=== PATIENT | female | born 1960 | race American Indian/Alaskan Native ===

== ENCOUNTER 2018-06-06 08:50 | Emergency (ER) | payer SELFPAY ==
[2018-06-06] MEDS ORDERED: ASPIRIN PO ONE (09:05)
[2018-06-06] MEDS ORDERED: NITRO-BID 2% TP ONE (10:34)
--- NOTE | 2018-06-06 10:39 | Emergency Department Report ---
HPI - General Chief Complaint: Chest Pain Time Seen by Provider: 06/06/18 10:29 - HPI HPI: Room 23 The patient is a 57-year-old female presenting with chief complaint of chest pain. The patient states for the past 2 weeks she's had intermittent substernal chest pain associated with nausea and vomiting. Patient denies shortness of breath or diaphoresis. Patient describes her pain as sharp and intermittent in nature. The patient currently gives her pain a score of 7/10. The patient states her last stress test occurred several years ago and she has never had a cardiac catheterization Location: Substernal chest Duration: Intermittent 2 weeks Quality: Sharp Severity: 7/10 Modifying factors: [see above] Context: [see above] Mode of transportation: [not driving] ED Past Medical Hx - Past Medical History Previous Medical History?: Yes Hx Hypertension: Yes - Surgical History Past Surgical History?: Yes Additional Surgical History: , Cyst removed from ovary - Family History Family history: no significant - Social History Smoking Status: Former Smoker (none times years) Substance Use Type: None (denies illicit drug use), Alcohol (occasional) ED Review of Systems ROS: Stated complaint: CHEST PAIN Other details as noted in HPI Constitutional: denies: diaphoresis Eyes: denies: eye pain ENT: denies: throat pain Respiratory: denies: shortness of breath Cardiovascular: chest pain Endocrine: no symptoms reported Gastrointestinal: nausea, vomiting Genitourinary: denies: dysuria Musculoskeletal: denies: back pain Neurological: headache Physical Exam - Physical Exam Vital Signs: Vital Signs 06/06/18 09:01 Temperature 98.9 F Pulse Rate 121 H Respiratory 20 Rate Blood Pressure 177/117 O2 Sat by Pulse 99 Oximetry Physical Exam: GENERAL: The patient is well-developed well-nourished female lying on stretcher not appearing to be in acute distress. [] HEENT: Normocephalic. Atraumatic. Extraocular motions are intact. Patient has moist mucous membranes. NECK: Supple. Trachea midline CHEST/LUNGS: Clear to auscultation. There is no respiratory distress noted. HEART/CARDIOVASCULAR: Regular. There is no tachycardia. There is no gallop rub or murmur. ABDOMEN: Abdomen is soft, nontender. Patient has normal bowel sounds. There is no abdominal distention. SKIN: There is no rash. There is no edema. There is no diaphoresis. NEURO: The patient is awake, alert, and oriented. The patient is cooperative. The patient has normal speech MUSCULOSKELETAL: There is no evidence of acute injury. ED Course Vital Signs 06/06/18 09:01 Temperature 98.9 F Pulse Rate 121 H Respiratory 20 Rate Blood Pressure 177/117 O2 Sat by Pulse 99 Oximetry ED Medical Decision Making - Lab Data Result diagrams: 06/06/18 09:10 06/06/18 09:10 Laboratory Tests 06/06/18 06/06/18 09:10 09:10 WBC 4.8 RBC 4.57 Hgb 13.9 Hct 42.1 MCV 92 MCH 31 MCHC 33 RDW 14.8 Plt Count 281 Lymph % (Auto) 46.8 H [place] % (Auto) 6.3 Eos % (Auto) 1.4 Baso % (Auto) 2.1 H Lymph # 2.3 [place] # 0.3 Eos # 0.1 Baso # 0.1 Seg Neutrophils % 43.4 Seg Neutrophils # 2.1 Sodium 138 Potassium 4.0 Chloride 100.6 Carbon Dioxide 25 Anion Gap 16 BUN 14 Creatinine 0.9 Estimated GFR > 60 BUN/Creatinine Ratio 16 Glucose 95 Calcium 10.5 H Troponin T < 0.010 - EKG Data -: EKG Interpreted by Me EKG shows normal: sinus rhythm Rate: tachycardia (106 bpm) - EKG Data When compared to previous EKG there are: previous EKG unavailable Interpretation: nonspecific ST-T wave dilip (T-wave inversion in lead 3, V3) - Radiology Data Radiology results: image reviewed (chest x-ray) interpreted by me: Chest x-ray-no focal infiltrates, no pneumothorax - Medical Decision Making I discussed with the patient at length my concern for her chest pain and my recommendation she be admitted to the hospital for further observation. I explained that it negative cardiac enzymes does not rule out myocardial infarction. I explained that she should leave the hospital against medical advise she runs a risk of increased morbidity and/or mortality. Patient verbalized understanding of increased morbidity and/or mortality should she leave the hospital AGAINST MEDICAL ADVICE. - Differential Diagnosis ACS, pericarditis, GERD Critical care attestation.: If time is entered above; I have spent that time in minutes in the direct care of this critically ill patient, excluding procedure time. ED Disposition Clinical Impression: Chest pain, T wave inversion in EKG, Hypercalcemia Disposition: DC-07 LEFT AGAINST MED ADVICE Is pt being admited?: No Does the pt Need Aspirin: No Condition: Undetermined Instructions: Chest Pain (ED) Referrals: PRIMARY CARE, [Primary Care Provider] - 3-5 Days Time of Disposition: 11:13 (patient leaving AMA)
[2018-06-06 10:47] VITALS: BP 140/95
[2018-06-06 10:51] LABS: Basophils # (Auto) 0.1 K/mm3 (0.0-0.1); Basophils % (Auto) 2.1 % (0.0-1.8); Eosinophils # (Auto) 0.1 K/mm3 (0.0-0.4); Eosinophils % (Auto) 1.4 % (0.0-4.3); Hematocrit 42.1 % (30.3-42.9); Hemoglobin 13.9 gm/dl (10.1-14.3); Lymphocytes # (Auto) 2.3 K/mm3 (1.2-5.4); Lymphocytes % (Auto) 46.8 % (13.4-35.0); Mean Corpuscular HGB Conc 33 % (30-34); Mean Corpuscular Hemoglobin 31 pg (28-32); Mean Corpuscular Volume 92 fl (79-97); Monocytes # (Auto) 0.3 K/mm3 (0.0-0.8); Monocytes % (Auto) 6.3 % (0.0-7.3); Platelet Count 281 K/mm3 (140-440); Red Blood Count 4.57 M/mm3 (3.65-5.03); Red Cell Distribution Width 14.8 % (13.2-15.2)
[2018-06-06 11:01] LABS: BUN/Creatinine Ratio 16; Blood Urea Nitrogen 14 mg/dL (7-17); Calcium 10.5 mg/dL (8.4-10.2); Hemolysis Index 22
--- NOTE | 2018-06-06 11:28 | XRay Report ---
FINAL REPORT EXAM: XR CHEST 1V AP HISTORY: chest pain TECHNIQUE: Chest, portable semi upright PRIORS: None. FINDINGS: The heart size is normal. Mediastinal contours are normal. Pulmonary vasculature is not congested. The lungs are clear. There are no pleural effusion seen. There is no evidence of pneumothorax. IMPRESSION: There is no acute abnormality identified.
== END 2018-06-06 11:22 | disposition left against medical advice (07) ==
LOC: ED 08:50
DX: R07.89 Other chest pain (principal); E83.52 Hypercalcemia; I10 Essential (primary) hypertension; Z87.891 Personal history of nicotine dependence
CPT/HCPCS: 36415; 71045; 80048; 84484; 85025; 93005; 93010

== ENCOUNTER 2018-06-10 16:20 | Inpatient (IN) | payer OTHER ==
[2018-06-10] MEDS ORDERED: ASPIRIN PO ONE (16:25)
[2018-06-10 16:52] LABS: Basophils # (Auto) 0.1 K/mm3 (0.0-0.1); Basophils % (Auto) 1.1 % (0.0-1.8); Eosinophils # (Auto) 0.1 K/mm3 (0.0-0.4); Eosinophils % (Auto) 2.6 % (0.0-4.3); Hematocrit 39.9 % (30.3-42.9); Hemoglobin 13.2 gm/dl (10.1-14.3); Lymphocytes # (Auto) 2.8 K/mm3 (1.2-5.4); Lymphocytes % (Auto) 48.4 % (13.4-35.0); Mean Corpuscular HGB Conc 33 % (30-34); Mean Corpuscular Hemoglobin 30 pg (28-32); Mean Corpuscular Volume 91 fl (79-97); Monocytes # (Auto) 0.6 K/mm3 (0.0-0.8); Monocytes % (Auto) 10.5 % (0.0-7.3); Platelet Count 264 K/mm3 (140-440); Red Blood Count 4.37 M/mm3 (3.65-5.03); Red Cell Distribution Width 14.3 % (13.2-15.2)
[2018-06-10 17:08] LABS: BUN/Creatinine Ratio 15; Blood Urea Nitrogen 17 mg/dL (7-17); Calcium 10.2 mg/dL (8.4-10.2); Hemolysis Index 5
[2018-06-10] MEDS ORDERED: NITRO-BID 2% TP ONE (21:17)
[2018-06-10] MEDS ORDERED: ZOFRAN IV ONE (21:17)
[2018-06-10] MEDS ORDERED: MORPHINE IV ONE (21:18)
--- NOTE | 2018-06-10 21:18 | Emergency Department Report ---
HPI - General Chief Complaint: Chest Pain Time Seen by Provider: 06/10/18 20:55 - HPI HPI: Room 2 The patient is a 57-year-old female presenting with a chief complaint of chest pain. The patient was seen by myself 06/06/2018 for chest pain. I had attempted to admit the patient to the hospital but she left AGAINST MEDICAL ADVICE. The patient states after leaving she continued to have intermittent substernal chest pain this time described as squeezing in nature. Patient states she felt short of breath, diaphoretic and nausea without vomiting with her chest pain. The patient states she also has dizziness with her symptoms. The patient currently gives her pain score of 7/10. Patient states her last stress test occurred several years ago but she has never had a cardiac catheterization Location: Substernal chest Duration: [See above] Quality: Squeezing Severity: 7/10 Modifying factors: [see above] Context: [see above] Mode of transportation: [not driving] ED Past Medical Hx - Past Medical History Hx Hypertension: Yes - Surgical History Additional Surgical History: , Cyst removed from ovary - Family History Family history: no significant - Social History Smoking Status: Never Smoker Substance Use Type: None ED Review of Systems ROS: Stated complaint: CHEST PAIN Other details as noted in HPI Constitutional: diaphoresis Eyes: denies: eye pain ENT: denies: throat pain Respiratory: shortness of breath Cardiovascular: chest pain Endocrine: no symptoms reported Gastrointestinal: nausea. denies: vomiting Genitourinary: denies: dysuria Musculoskeletal: denies: back pain Neurological: other (dizziness) Physical Exam - Physical Exam Vital Signs: Vital Signs 06/10/18 16:23 Temperature 99.3 F Pulse Rate 101 H Respiratory 18 Rate Blood Pressure 118/65 O2 Sat by Pulse 97 Oximetry Physical Exam: GENERAL: The patient is well-developed well-nourished female lying on stretcher not appearing to be in acute distress. [] HEENT: Normocephalic. Atraumatic. Extraocular motions are intact. Patient has moist mucous membranes. NECK: Supple. Trachea midline CHEST/LUNGS: Clear to auscultation. There is no respiratory distress noted. HEART/CARDIOVASCULAR: Regular. There is no tachycardia. There is no gallop rub or murmur. ABDOMEN: Abdomen is soft, nontender. Patient has normal bowel sounds. There is no abdominal distention. SKIN: There is no rash. There is no edema. There is no diaphoresis. NEURO: The patient is awake, alert, and oriented. The patient is cooperative. The patient has no focal neurologic deficits. The patient has normal speech and gait. MUSCULOSKELETAL: There is no evidence of acute injury. ED Course Vital Signs 06/10/18 16:23 Temperature 99.3 F Pulse Rate 101 H Respiratory 18 Rate Blood Pressure 118/65 O2 Sat by Pulse 97 Oximetry ED Medical Decision Making - Lab Data Result diagrams: 06/10/18 16:30 06/10/18 16:30 Laboratory Tests 06/10/18 06/10/18 06/10/18 16:30 16:30 18:50 WBC 5.8 RBC 4.37 Hgb 13.2 Hct 39.9 MCV 91 MCH 30 MCHC 33 RDW 14.3 Plt Count 264 Lymph % (Auto) 48.4 H [place] % (Auto) 10.5 H Eos % (Auto) 2.6 Baso % (Auto) 1.1 Lymph # 2.8 [place] # 0.6 Eos # 0.1 Baso # 0.1 Seg Neutrophils % 37.4 L Seg Neutrophils # 2.2 Sodium 141 Potassium 3.7 Chloride 102.6 Carbon Dioxide 26 Anion Gap 16 BUN 17 Creatinine 1.1 Estimated GFR > 60 BUN/Creatinine Ratio 15 Glucose 88 Calcium 10.2 Troponin T < 0.010 < 0.010 - EKG Data -: EKG Interpreted by Me EKG shows normal: sinus rhythm Rate: normal - EKG Data When compared to previous EKG there are: changes noted Interpretation: nonspecific ST-T wave dilip (T-wave inversion in lead 3. Flattened T-wave in lead V3) - Radiology Data Radiology results: image reviewed (chest x-ray) interpreted by me: Chest x-ray-no focal infiltrates, no pneumothorax - Differential Diagnosis ACS, pericarditis, GERD Critical care attestation.: If time is entered above; I have spent that time in minutes in the direct care of this critically ill patient, excluding procedure time. ED Disposition Clinical Impression: Chest pain, T wave inversion in EKG Disposition: OP ADMIT IP TO THIS HOSP Is pt being admited?: Yes Does the pt Need Aspirin: Yes Condition: Fair Instructions: Chest Pain (ED) Referrals: PRIMARY CARE, [Primary Care Provider] - 3-5 Days Time of Disposition: 22:28 (hospitalist paged (Dr. Sydnee Pak))
--- NOTE | 2018-06-10 23:04 | XRay Report ---
FINAL REPORT EXAM: XR CHEST 1V AP HISTORY: chest pain TECHNIQUE: Frontal portable view of the chest Comparison: Chest x-ray dated June 06, 2018 FINDINGS: There is no evidence of infiltrate, pneumothorax or pleural fluid collection. The cardiac silhouette appears to be enlarged. This may be exaggerated by portable technique The thoracic aorta and bony structures are unremarkable. IMPRESSION: 1. No evidence of an acute pulmonary process. 2. The cardiac silhouette appears to be enlarged. This may be exaggerated by portable technique.
[2018-06-10] MEDS ORDERED: TYLENOL PO PRN (23:16)
[2018-06-10] MEDS ORDERED: MORPHINE IV PRN (23:16)
[2018-06-10] MEDS ORDERED: ZOFRAN IV PRN (23:16)
[2018-06-10] MEDS ORDERED: SODIUM CHLORIDE FLUSH SYRINGE 10 ML IV PRN (23:16)
--- NOTE | 2018-06-10 23:22 | History and Physical Report ---
History of Present Illness Date of examination: 06/10/18 History of present illness: 57-year-old woman comes emergency room with complaints of chest pain. Pain is a cross the chest which she describes as squeezing pain, intermittent in nature lasting for a few seconds, intensity 5 or 10, no radiation, ongoing over the last 2 weeks. Admits to nausea, shortness of breath, no diaphoresis or palpitation Review of systems Constitutional: no weight loss, chills, fever Ears, eyes, nose, mouth and throat: no nasal congestion, no nasal discharge, no sinus pressure, no vision change, no red eye. Neck: No neck pain or rigidity. Cardiovascular: no palpitations Respiratory: no cough, shortness of breath Gastrointestinal: no abdominal pain hematochezia Genitourinary : no frequency , no hematuria Musculoskeletal: no joint swelling or muscle ache Integumentary: no rash, no pruritis Neurological: no parathesias, no numbness, no focal weakness Endocrine: no cold or heat intolerance, no polyuria or polydipsia Hematologic/Lymphatic: no easy bruising, no easy bleeding, no gland swelling Allergic/Immunologic: no urticaria, no angioedema. PAST MEDICAL HISTORY: None PAST SURGICAL HISTORY: , cyst removed from ovary SOCIAL HISTORY: Social alcohol, no drugs, quit tobacco FAMILY HISTORY: Hypertension Medications and Allergies Allergies Allergy/AdvReac Type Severity Reaction Status Date / Time No Known Allergies Allergy Verified 06/10/18 16:23 Active Meds: Active Medications Acetaminophen (Tylenol) 650 mg PO Q4H PRN PRN Reason: Pain MILD(1-3)/Fever >100.5/PALOMO Enoxaparin Sodium (Lovenox) 30 mg SUB-Q QDAY REMA Morphine Sulfate (Morphine) 2 mg IV Q4H PRN PRN Reason: Pain, Moderate (4-6) Ondansetron HCl (Zofran) 4 mg IV Q8H PRN PRN Reason: Nausea And Vomiting Sodium Chloride (Sodium Chloride Flush Syringe 10 Ml) 10 ml IV BID REMA Sodium Chloride (Sodium Chloride Flush Syringe 10 Ml) 10 ml IV PRN PRN PRN Reason: LINE FLUSH Exam - Physical Exam Narrative exam: Gen. appearance: Patient lying in bed, no apparent distress HEENT: Normocephalic, atraumatic, pupils equally round and reactive to light, extraocular movement intact, and no sclericterus,. No JVD or thyromegaly or nodule,neck supple, no carotid bruit ,mucous membranes moist, no exudate or erythema Heart: S1, S2, regular rate and rhythm Lungs: Clear bilaterally, breathing comfortable Abdomen: Positive bowel sounds, non-tender, nondistended, no organomegaly Extremity:no edema cyanosis, clubbing Skin: no rash, dry, warm Neuro: Oriented 3, cranial nerves II-12 intact, speech is fluent, motor and sensory intact - Constitutional Vitals: Temp Pulse Resp BP Pulse Ox 99.3 F 74 16 85/47 100 06/10/18 16:23 06/10/18 22:45 06/10/18 22:45 06/10/18 22:45 06/10/18 22:30 Results - Labs CBC & Chem 7: 06/10/18 16:30 06/10/18 16:30 Labs: Abnormal lab results 06/10/18 Range/Units 16:30 Lymph % (Auto) 48.4 H (13.4-35.0) % [place] % (Auto) 10.5 H (0.0-7.3) % Seg Neutrophils % 37.4 L (40.0-70.0) % - Imaging and Cardiology EKG: image reviewed Chest x-ray: report reviewed Assessment and Plan Assessment Chest pain Plan Admit to medicine Check cardiac enzymes, stress tests, IV morphine DVT prophylaxis
[2018-06-11] MEDS ORDERED: NACL 0.9% 1000 ML 1,000 ML IV ONE (04:20)
[2018-06-11 04:57] LABS: Hematocrit 38.3 % (30.3-42.9); Hemoglobin 12.5 gm/dl (10.1-14.3); Mean Corpuscular HGB Conc 33 % (30-34); Mean Corpuscular Hemoglobin 30 pg (28-32); Mean Corpuscular Volume 92 fl (79-97); Platelet Count 225 K/mm3 (140-440); Red Blood Count 4.15 M/mm3 (3.65-5.03); Red Cell Distribution Width 14.3 % (13.2-15.2)
[2018-06-11 07:29] LABS: Basophils % (Manual) 0 % (0.0-1.8); Total Cells Counted 100
[2018-06-11 07:30] LABS: Anisocytosis 1+
[2018-06-11] MEDS ORDERED: LEXISCAN IV ONE ×2 (08:59→09:00)
[2018-06-11] MEDS ORDERED: LOVENOX SUB-Q SCH ×2 (10:00)
[2018-06-11] MEDS ORDERED: SODIUM CHLORIDE FLUSH SYRINGE 10 ML IV SCH (10:00)
--- NOTE | 2018-06-11 11:11 | Discharge Summary ---
Providers - Providers Date of Admission: 06/10/18 23:16 Date of discharge: 06/11/18 Attending physician: NICOLETTE CRAFT Primary care physician: [employer] Hospitalization Condition: Fair Disposition: DC-01 TO HOME OR SELFCARE Time spent for discharge: 31 min Core Measure Documentation - Palliative Care Palliative Care/ Comfort Measures: Not Applicable - Core Measures Any of the following diagnoses?: none Exam - Constitutional Vitals: Temp Pulse Resp BP Pulse Ox 99.3 F 67 11 L 106/63 100 06/10/18 16:23 06/11/18 06:45 06/11/18 06:45 06/11/18 06:45 06/11/18 06:45 General appearance: Present: no acute distress, well-nourished Plan Activity: no restrictions Diet: regular Additional Instructions: If you have chest pain or shortness of breath contact M.D. or go to emergency room Follow up with: PRIMARY CAREMD [Primary Care Provider] - 3-5 Days BUNNY GLEZ MD [Staff Physician] - 7 Days Prescriptions: Famotidine [Pepcid] 20 mg PO BID #10 tablet oxyCODONE /ACETAMINOPHEN [Percocet 5/325] 1 tab PO DAILY PRN #5 tablet PRN Reason: Pain , Severe (7-10)
[2018-06-11 12:33] VITALS: BP 110/70
--- NOTE | 2018-06-11 19:23 | Treadmill Report ---
NUCLEAR PERFUSION STUDY DONE BY: Dr. Peters. IMAGING PROTOCOL: The patient received 10 mCi of Technetium 99m Tetrofosmin for resting image and 28 mCi of Technetium 99m Tetrofosmin for stress imaging. The imaging for the whole procedure was completed 30-90 minutes following the initial injection of Technetium 99m Tetrofosmin. The SPECT imaging in the 180 degree arc was performed in the right anterior oblique projection. Computerized reconstruction of the images was performed for analysis. IMAGING RESULTS: Normal cavity size from stress to rest. Normal distribution of radionuclide in the anterior, inferior, septal, and apical regions. Gated SPECT, EF of greater than 65% with motion abnormality. The patient infused Lexiscan with no EKG changes. SUMMARY: 1. Negative Lexiscan EKG. 2. Normal rest and stress myocardial perfusion scan. No significant stress ischemia. No wall motion abnormality. Gated SPECT, EF greater than 65%. JOB# [id number] DEYA/BLAZE
== END 2018-06-11 12:35 | disposition home or self-care (01) | DRG 313 ==
LOC: ED 16:20 → 4A 23:16
PROVIDERS: ADMIT Internal Medicine; ATTEND Internal Medicine
DX: R07.9 Chest pain, unspecified (principal); Z82.49 Family history of ischemic heart disease and other diseases of the circulatory system
CPT/HCPCS: 36415; 71045; 78452; 80048; 84484; 85007; 85025; 93005; 93010; 93017; 96374; 96375; A9502; J2270; J2405; J2785; J7030

== ENCOUNTER 2018-07-08 20:28 | Emergency (ER) | payer SELFPAY ==
[2018-07-08 20:39] VITALS: BP 147/99
[2018-07-08] MEDS ORDERED: DELTASONE PO STA (23:56)
[2018-07-08] MEDS ORDERED: NORCO 5/325 PO ONE (23:56)
--- NOTE | 2018-07-09 05:03 | Emergency Department Report ---
ED Back Pain/Injury HPI - General Chief Complaint: Back Pain/Injury Stated Complaint: BACK PAIN Time Seen by Provider: 07/08/18 22:31 Source: patient Limitations: No Limitations - History of Present Illness MD Complaint: back pain -: year(s) Similar Symptoms Previously: Yes Place: home Radiation: none Severity: mild Quality: dull Consistency: constant, intermittent Improves With: medication (narcotic) Worsens With: movement Associated Symptoms: denies: confusion, weakness, chest pain, numbness, difficulty walking, difficulty urinating, fever/chills, constipation, headaches , abdominal pain, nausea/vomiting, rash, shortness of breath, syncope, other - Related Data Home Medications Medication Instructions Recorded Confirmed Last Taken Meloxicam 15 mg PO DAILY 06/11/18 06/11/18 Unknown traMADol [Ultram] 50 mg PO Q6HR PRN 06/11/18 06/11/18 Unknown Previous Rx's Medication Instructions Recorded Last Taken Type Famotidine [Pepcid] 20 mg PO BID #10 tablet 06/11/18 Unknown Rx oxyCODONE /ACETAMINOPHEN [Percocet 1 tab PO DAILY PRN #5 tablet 06/11/18 Unknown Rx 5/325] predniSONE [Prednisone] 20 mg PO BID 5 Days #20 tablet 07/08/18 Unknown Rx Methocarbamol [Robaxin-750] 750 mg PO TID #21 tablet 07/09/18 Unknown Rx Allergies Allergy/AdvReac Type Severity Reaction Status Date / Time No Known Allergies Allergy Verified 06/10/18 16:23 ED Review of Systems ROS: Stated complaint: BACK PAIN Other details as noted in HPI Constitutional: denies: chills, fever Eyes: denies: eye pain, eye discharge, vision change ENT: denies: ear pain, throat pain Respiratory: denies: cough, shortness of breath, wheezing Cardiovascular: denies: chest pain, palpitations Endocrine: no symptoms reported Gastrointestinal: denies: abdominal pain, nausea, diarrhea Genitourinary: denies: urgency, dysuria, discharge Musculoskeletal: back pain. denies: joint swelling, arthralgia, myalgia Skin: denies: rash, lesions Neurological: denies: headache, weakness, paresthesias Psychiatric: denies: anxiety, depression Hematological/Lymphatic: denies: easy bleeding, easy bruising ED Past Medical Hx - Past Medical History Hx Hypertension: Yes Additional medical history: chronic back pain - Surgical History Additional Surgical History: , Cyst removed from ovary - Social History Smoking Status: Never Smoker - Medications Home Medications: Home Medications Medication Instructions Recorded Confirmed Last Taken Type Famotidine [Pepcid] 20 mg PO BID #10 tablet 06/11/18 Unknown Rx Meloxicam 15 mg PO DAILY 06/11/18 06/11/18 Unknown History oxyCODONE /ACETAMINOPHEN [Percocet 1 tab PO DAILY PRN #5 tablet 06/11/18 Unknown Rx 5/325] traMADol [Ultram] 50 mg PO Q6HR PRN 06/11/18 06/11/18 Unknown History predniSONE [Prednisone] 20 mg PO BID 5 Days #20 tablet 07/08/18 Unknown Rx Methocarbamol [Robaxin-750] 750 mg PO TID #21 tablet 07/09/18 Unknown Rx ED Physical Exam - General Limitations: No Limitations General appearance: alert, in no apparent distress - Head Head exam: Present: atraumatic, normocephalic - Eye Eye exam: Present: normal appearance, PERRL Pupils: Present: normal accommodation - ENT ENT exam: Present: normal exam, mucous membranes moist - Neck Neck exam: Present: normal inspection - Respiratory Respiratory exam: Present: normal lung sounds bilaterally. Absent: respiratory distress, wheezes, rales, accessory muscle use, decreased breath sounds - Cardiovascular Cardiovascular Exam: Present: regular rate, normal rhythm. Absent: systolic murmur, diastolic murmur, rubs, gallop - GI/Abdominal GI/Abdominal exam: Present: soft, normal bowel sounds - Extremities Exam Extremities exam: Present: normal inspection. Absent: normal capillary refill, pedal edema - Back Exam Back exam: Present: normal inspection, tenderness, paraspinal tenderness. Absent: CVA tenderness (L), muscle spasm, rash noted, other - Neurological Exam Neurological exam: Present: alert, oriented X3, CN II-XII intact - Psychiatric Psychiatric exam: Present: normal affect, normal mood. Absent: depressed - Skin Skin exam: Present: warm, dry, intact, normal color. Absent: rash, diaphoretic , erythema, petechiae, pallor, abrasion ED Course Vital Signs 07/08/18 07/08/18 07/09/18 20:35 20:40 00:33 Temperature 98.8 F 98.8 F Pulse Rate 107 H 107 H 80 Respiratory 20 18 17 Rate Blood Pressure 147/99 147/99 O2 Sat by Pulse 100 99 Oximetry Critical care attestation.: If time is entered above; I have spent that time in minutes in the direct care of this critically ill patient, excluding procedure time. ED Disposition Clinical Impression: Lumbago Disposition: DC-01 TO HOME OR SELFCARE Is pt being admited?: No Does the pt Need Aspirin: No Condition: Stable Instructions: Chronic Back Pain (ED) Prescriptions: Methocarbamol [Robaxin-750] 750 mg PO TID #21 tablet predniSONE [Prednisone] 20 mg PO BID 5 Days #20 tablet Referrals: PRIMARY CARE, [Primary Care Provider] - 3-5 Days Forms: Work/School Release Form(ED)
== END 2018-07-09 00:33 | disposition home or self-care (01) ==
LOC: ED 20:28
DX: M54.5 Low back pain (principal); G89.29 Other chronic pain
CPT/HCPCS: 99282; J7512

== ENCOUNTER 2022-06-28 08:36 | Emergency (ER) | payer SELFPAY ==
[2022-06-28 09:21] VITALS: BP 159/87
== END 2022-06-29 02:09 | disposition left against medical advice (07) ==
LOC: ED 08:36
DX: M54.9 Dorsalgia, unspecified (principal); Z53.21 Procedure and treatment not carried out due to patient leaving prior to being seen by health care provider